=== PATIENT | male | born 1965 | race Caucasian/White ===

== ENCOUNTER 2016-06-14 07:44 | Day surgery (SDC) | payer BC ==
[~2016-06-14 07:44] MED LIST: Lactated Ringers 1,000 ML IV SCH
[2016-06-14] MEDS ORDERED: Propofol 200 MG/20 ML SDV ONE ×3 (09:54→10:17)
[2016-06-14] MEDS ORDERED: fentaNYL 100 MCG/2 ML SDV ONE (09:54)
[2016-06-14 11:18] VITALS: BP 142/97
--- NOTE | 2016-06-14 17:59 | OR ---
DATE OF SURGERY: 06/14/2016. REFERRING PROVIDER: Jaime Esqueda M.D. PREOPERATIVE DIAGNOSES: 1. Screening colonoscopy. 2. Positive family history of colon cancer in paternal grandfather, who was diagnosed in his late 40s/early 50s. Also positive family history of celiac disease in sister. POSTOPERATIVE DIAGNOSES: 1. Two colon polyps removed. a. 3 mm cecal polyp removed with cold forceps times several small bites. b. 8 mm partially pedunculated polyp at 16 cm from the anal verge. This was removed with hot snare and then base of the polyp was cauterized. PROCEDURE: Colonoscopy with polypectomy x2 (one using cold forceps and one using hot snare). SURGEON: Josafat Cheema M.D. ANESTHESIA: Monitored anesthesia care. BOWEL PREP: Good. DESCRIPTION OF PROCEDURE: Juan Daniel is a 50-year-old male who was brought to the endoscopy suite after discussing risks and benefits of the procedure. Informed consent was obtained for conscious sedation and colonoscopy with or without biopsy and/or polypectomy. We also discussed possibility of missed lesions. Pre-procedure exam was unremarkable. IV, oxygen, and monitors were placed. The patient was placed in the left lateral decubitus position. Sedation was administered and a digital rectal exam was performed which was unremarkable. Colonoscope was passed into the rectum and slowly advanced all the way to the cecum. Cecum was viewed and photographed. There was noted to be a 3-mm polyp at the entry to the cecum. This was photographed and removed with several bites using the cold forceps. The colonoscope was slowly withdrawn and the mucosa was closed observed in a direct circumferential manner. The ascending colon was unremarkable. The transverse colon was unremarkable. The descending colon was unremarkable. The sigmoid colon at the rectosigmoid junction revealed 8-mm partially pedunculated polyp at 16 cm from the anal verge. This was photographed and removed with hot snare. The tip of the snare was also used to cauterize the base of the polyp site. Retroflexion was performed and rectal mucosa was unremarkable. Scope was removed. The patient tolerated the procedure well. The patient was monitored until that baseline status. Discharge instructions were reviewed and the patient was discharged in good condition. COMPLICATIONS: None. TOTAL TIME: 34 minutes. ESTIMATED BLOOD LOSS: About 1 mL. RECOMMENDATIONS/FOLLOW-UP: We will await results of path report to determine ideal followup interval. We will have the patient avoid any aspirin for the next 5 days. I would like to kindly thank Dr. Jaime Esqueda for this referral. DMB: 06/14/2016 10:54:19 MODL: 06/14/2016 17:50:54 /[id number]
== END 2016-06-14 11:41 | disposition home or self-care (01) ==
LOC: VM.SDS 07:44
PROVIDERS: ATTEND Family Medicine
DX: Z12.11 Encounter for screening for malignant neoplasm of colon (principal); Z80.0 Family history of malignant neoplasm of digestive organs; Z79.899 Other long term (current) drug therapy
CPT/HCPCS: 45380; 45385; J2704; J3010; J7120

== ENCOUNTER 2020-08-02 16:48 | Emergency (ER) | payer OTHER ==
--- NOTE | 2020-08-02 17:01 | EDM.PDOC ---
ED HPI GENERAL MEDICAL PROBLEM - General Time Seen by Provider: 08/02/20 16:50 Source of Information: Reports: Patient, RN, RN Notes Reviewed History Limitations: Reports: No Limitations - History of Present Illness INITIAL COMMENTS - FREE TEXT/NARRATIVE: Patient is a 54-year-old male who presents to ER with complaint of left shoulder and scapular pain. Patient denies any chest pains, shortness of breath, nausea, vomiting, diarrhea, fever, chills. Patient states he does have lumbar radiculopathy and sciatica that has been a longstanding issue from bulging disks in his lower back. Patient states over the past few days he has been tearing shingles off and carrying steel on a rough. States he was up at 4 this morning was not having pain, and when he awoke at 5 was having severe pain in the left shoulder and scapular area. States he does feel shooting pain down the left arm, denies any numbness or tingling of the fingers, hand, arm. Patient states he has taken ibuprofen 3 times today which has not touched the pain. Pt states he did go to the chiropractor this morning. States he does have an appointment with Noemi Warren tomorrow morning. Onset: Today Left Shoulder Pain Score (Numeric/FACES): 8 - Related Data Allergies Allergy/AdvReac Type Severity Reaction Status Date / Time No Known Allergies Allergy Verified 08/02/20 17:11 Home Meds: Home Meds Pravastatin Sodium [Pravastatin (Pravachol)] 20 mg PO DAILY 02/18/16 [History] Past Medical History - Past Health History Medical/Surgical History: Denies Medical/Surgical History HEENT History: Reports: Impaired Vision Cardiovascular History: Reports: High Cholesterol, Hypertension Respiratory History: Reports: None Other Respiratory History: SNORING Gastrointestinal History: Reports: None Genitourinary History: Reports: None 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) Neurological History: Reports: None Other Neuro History: RESTLESS LEG SYNDROME Psychiatric History: Reports: None Other Endocrine/Metabolic History: IMPAIRED FASTING BLOOD GLUCOSE A1C 6.1 Hematologic History: Reports: None Immunologic History: Reports: None Oncologic (Cancer) History: Reports: None Dermatologic History: Reports: None - Past Surgical History GI Surgical History: Reports: None Male Surgical History: Reports: None Endocrine Surgical History: Reports: None Neurological Surgical History: Reports: None Musculoskeletal Surgical History: Reports: None Social & Family History - Family History Family Medical History: No Pertinent Family History - Caffeine Use Caffeine Use: Reports: Soda ED ROS GENERAL - Review of Systems Review Of Systems: Comprehensive ROS is negative, except as noted in HPI. ED EXAM, GENERAL - Physical Exam Exam: See Below Exam Limited By: No Limitations General Appearance: Alert, WD/WN, Mild Distress Eye Exam: Bilateral Eye: EOMI, Normal Inspection Ears: Normal External Exam, Hearing Grossly Normal Nose: Normal Inspection Throat/Mouth: Normal Inspection, Normal Voice, No Airway Compromise Head: Atraumatic, Normocephalic Neck: Normal Inspection, Supple, Limited Range of Motion, Tender Lateral, Tender Midline Respiratory/Chest: No Respiratory Distress, Lungs Clear, Normal Breath Sounds, No Accessory Muscle Use, Chest Non-Tender Cardiovascular: Normal Peripheral Pulses, Regular Rate, Rhythm, No Edema, No Gallop, No JVD, No Murmur, No Rub GI/Abdominal: Normal Bowel Sounds, Soft, Non-Tender (Male) Exam: Deferred Rectal (Males) Exam: Deferred Back Exam: Normal Inspection, Full Range of Motion Extremities: Limited Range of Motion (left arm) Neurological: Alert, Oriented, CN II-XII Intact, Normal Cognition, Normal Gait, Normal Reflexes, No Motor/Sensory Deficits Psychiatric: Normal Affect, Normal Mood Skin Exam: Warm, Dry, Intact, Normal Color, No Rash Lymphatic: No Adenopathy #1 Interpretation EKG Date: 08/02/20 Time: 17:01 Rhythm: NSR Rate (Beats/Min): 77 [place]: Normal P-Wave: Present QRS: Normal ST-T: Normal QT: Normal Comparison: NA - No Prior EKG Course - Vital Signs Last Recorded V/S: Last Vital Signs Temp 98.7 F 08/02/20 16:50 Pulse 72 08/02/20 16:50 Resp 16 08/02/20 16:50 BP 149/99 H 08/02/20 16:50 Pulse Ox 97 08/02/20 16:50 - Orders/Labs/Meds Orders: Active Orders 24 hr Category Date Time Status EKG Documentation Completion [RC] STAT Care 08/02/20 17:02 Active Acetaminophen/HYDROcodone [Take Home: Acetaminophen/ Med 08/02/20 18:48 Once HYDROcodone 325-10MG] 1 packet PO ONETIME ONE Cyclobenzaprine [Take Home: Cyclobenzaprine 10 MG, 4 Med 08/02/20 18:47 Once Tab Pack] 1 packet PO ONETIME ONE Ketorolac [Take Home: Ketorolac 10 MG, 4 Tab Pack] Med 08/02/20 18:47 Once 1 packet PO ONETIME ONE Labs: Laboratory Tests 08/02/20 08/02/20 Range/Units 17:19 17:19 WBC 8.6 (4.0-10.0) x10^3/uL RBC 4.99 (4.5-6.0) x10^6/uL Hgb 15.7 (14.0-18.0) g/dL Hct 44.8 (40.0-52.0) % MCV 89.8 (78.0-93.0) fL MCH 31.5 (26.0-32.0) pg MCHC 35.0 (32.0-36.0) g/dL RDW Coeff of Elsa 12.8 (10.0-15.0) % Plt Count 237 (130-400) x10^3/uL Neut % (Auto) 62.6 (50.0-80.0) % Lymph % (Auto) 23.3 L (25.0-50.0) % Russell % (Auto) 12.1 H (2.0-11.0) % Eos % (Auto) 1.7 (0.0-4.0) % Baso % (Auto) 0.3 (0.2-1.2) % Sodium 139 (136-145) mmol/L Potassium 4.1 (3.5-5.1) mmol/L Chloride 102 (98-107) mmol/L Carbon Dioxide 26 (21-32) mmol/L Anion Gap 15.1 H (5-15) mmol/L BUN 18 (7-18) mg/dL Creatinine 1.2 (0.70-1.30) mg/dL Est Cr Clr Drug Dosing TNP Estimated GFR (MDRD) > 60 Glucose 106 H (70-99) mg/dL Calcium 8.4 L (8.5-10.1) mg/dL Corrected Calcium 8.56 (8.5-10.1) mg/dL Total Bilirubin 0.5 (0.2-1.0) mg/dL AST 25 (15-37) U/L ALT 43 (16-63) U/L Alkaline Phosphatase 54 (46-116) U/L Troponin I High Sens 6 (<=76) ng/L Total Protein 7.1 (6.4-8.2) g/dL Albumin 3.8 (3.4-5.0) g/dL Globulin 3.3 Albumin/Globulin Ratio 1.15 Meds: Medications Discontinued Medications Generic Name Dose Route Start Last Admin Trade Name Shine PRN Reason Stop Dose Admin Dexamethasone 8 mg 08/02/20 18:12 08/02/20 18:24 Dexamethasone 4 Mg/Ml Sdv IM 08/02/20 18:13 8 mg ONETIME ONE Administration Ketorolac Tromethamine 30 mg 08/02/20 18:12 08/02/20 18:25 Ketorolac 30 Mg/Ml Sdv IM 08/02/20 18:13 30 mg ONETIME ONE Administration Orphenadrine Citrate 60 mg 08/02/20 18:12 08/02/20 18:24 Orphenadrine 60 Mg/2 Ml Inj IM 08/02/20 18:13 60 mg ONETIME ONE Administration - Radiology Interpretation Free Text/Narrative:: Chest x-ray: Negative exam Cervical spine x-ray: Moderate C5-C6 and mild C4-C5 disc degeneration. See radiologist report Departure - Departure Time of Disposition: 18:49 Disposition: Home, Self-Care 01 Reason for Transfer *Q: Other Condition: Fair Clinical Impression: Cervical radiculopathy Instructions: Shoulder Pain, [id number], Cervical Radiculopathy, [id number] Referrals: Noemi Warren MD [Primary Care Provider] - Forms: ED Department Discharge Additional Instructions: No heavy lifting RX: Ketorolac, Cyclobenzaprine, Dexamethasone Follow up with your primary care facility for possible MRI May use Tylenol in addition to above meds for pain relief, but do not take ibuprofen with the Ketorolac (this is also an NSAID) May alternate heat and ice to the area DO NOT DRIVE OR OPERATE HEAVY MACHINERY WHILE TAKING CYCLOBENZAPRINE Return to the ER with any worsening of symptoms. Sepsis Event Note (ED) - Focused Exam Vital Signs: Vital Signs Temp Pulse Resp BP Pulse Ox 08/02/20 16:50 98.7 F 72 16 149/99 H 97 - My Orders Last 24 Hours: My Active Orders 08/02/20 17:02 EKG Documentation Completion [RC] STAT 08/02/20 18:47 Cyclobenzaprine [Take Home: Cyclobenzaprine 10 MG, 4 Tab Pack] 1 packet PO ONETIME ONE Ketorolac [Take Home: Ketorolac 10 MG, 4 Tab Pack] 1 packet PO ONETIME ONE 08/02/20 18:48 Acetaminophen/HYDROcodone [Take Home: Acetaminophen/HYDROcodone 325-10MG] 1 packet PO ONETIME ONE - Assessment/Plan Last 24 Hours: My Active Orders 08/02/20 17:02 EKG Documentation Completion [RC] STAT 08/02/20 18:47 Cyclobenzaprine [Take Home: Cyclobenzaprine 10 MG, 4 Tab Pack] 1 packet PO ONETIME ONE Ketorolac [Take Home: Ketorolac 10 MG, 4 Tab Pack] 1 packet PO ONETIME ONE 08/02/20 18:48 Acetaminophen/HYDROcodone [Take Home: Acetaminophen/HYDROcodone 325-10MG] 1 packet PO ONETIME ONE
[2020-08-02 17:09] VITALS: BP 149/99; PULSE 72
[2020-08-02 17:51] LABS: CHLORIDE,CL 102 mmol/L (98-107); SODIUM,NA 139 mmol/L (136-145)
[2020-08-02 17:57] LABS: ANION GAP 15.1 mmol/L (5-15)
[2020-08-02] MEDS ORDERED: Dexamethasone 4 MG/ML SDV IM ONE (18:12)
[2020-08-02] MEDS ORDERED: Ketorolac 30 MG/ML SDV IM ONE (18:12)
[2020-08-02] MEDS ORDERED: Orphenadrine 60 MG/2 ML Inj IM ONE (18:12)
--- NOTE | 2020-08-02 18:30 | CR ---
[id number] RAD/RAD Chest PA And Lateral EXAM: FRONTAL AND LATERAL CHEST INDICATION: LEFT SHOULDER/BACK PAIN. COMPARISON: None. DISCUSSION: The heart and lungs are normal in appearance. Chronic healed bilateral rib fractures. IMPRESSION: 1. Negative exam. Jermaine Franklin MD 08/02/20 [id number] Thank you for allowing us to participate in the care of your patient.
--- NOTE | 2020-08-02 18:31 | CR ---
[id number] RAD/RAD Cervical Spine 2-3V EXAM: RAD Cervical Spine 2-3V INDICATION: LEFT ARM/BACK PAIN. COMPARISON: None. DISCUSSION: Moderate disc degeneration at C5-C6 with milder changes at C4-C5. The remaining disc heights are maintained. The vertebral bodies are normal in height and alignment without fracture or suspicious bone lesion identified. Normal prevertebral soft tissue thickness. IMPRESSION: 1. Moderate C5-C6 and mild C4-C5 disc degeneration. Jermaine Franklin MD 08/02/20 [id number] Thank you for allowing us to participate in the care of your patient.
[2020-08-02] MEDS ORDERED: Take Home: Cyclobenzaprine 10 MG Tab, 4 Tab Pack PO ONE (18:47)
[2020-08-02] MEDS ORDERED: Take Home: Ketorolac 10 MG Tab, 4 Tab Pack PO ONE (18:47)
[2020-08-02] MEDS ORDERED: Take Home: Acetaminophen/HYDROcodone 325-10 MG, 5 Tab Pack PO ONE (18:48)
== END 2020-08-02 19:01 | disposition home or self-care (01) ==
LOC: VM.ED 16:48
DX: M54.12 Radiculopathy, cervical region (principal); E78.00 Pure hypercholesterolemia, unspecified; I10 Essential (primary) hypertension; Z79.899 Other long term (current) drug therapy
CPT/HCPCS: 36415; 71046; 72040; 80053; 84484; 85025; 93005; 93010; 96372; 99284; 99284-25; A9270-GY; J1100; J1885; J2360

== ENCOUNTER 2020-12-16 01:10 | Emergency (ER) | payer OTHER ==
[2020-12-16] MEDS ORDERED: Dexamethasone 4 MG/ML SDV IM ONE (01:31)
[2020-12-16] MEDS ORDERED: Orphenadrine 60 MG/2 ML Inj IM ONE (01:31)
[2020-12-16] MEDS ORDERED: Ketorolac 30 MG/ML SDV IM ONE (01:31)
[2020-12-16 01:33] VITALS: BP 151/82; PULSE 73
--- NOTE | 2020-12-16 01:36 | EDM.PDOC ---
ED HPI GENERAL MEDICAL PROBLEM - General Chief Complaint: Back Pain or Injury Stated Complaint: back pain Time Seen by Provider: 12/16/20 01:10 Source of Information: Reports: Patient History Limitations: Reports: No Limitations - History of Present Illness INITIAL COMMENTS - FREE TEXT/NARRATIVE: Patient comes into the emergency room with complaint of lower back pain. Patient states that his back started hurting approximately 12 hours ago. Patient was moving an object from the cover to lower position. He states that he did feel a popping sensation. He states that the discomfort and pain is lower midsection of his back that shoots pain and discomfort around middle of his abdomen. He describes as a sharp shooting sensation. He denies any radiation down his legs or midsection of his back. He also denies any loss of bowel or bladder. Patient states that he has had similar incidences in the past with bulging disks for he often lifts heavy objects. He states that this is similar however it is more severe and significant than it has been in the past. He states he is having difficulty getting in a position of comfort. He denies any CMS or range of motion concerns of his lower extremities. He does stated is difficult to bend over due to the pain discomfort at approximately L1-L2 region. 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 Middle Back Pain Score (Numeric/FACES): 10 - Related Data Allergies Allergy/AdvReac Type Severity Reaction Status Date / Time No Known Allergies Allergy Verified 08/02/20 17:11 Home Meds: Home Meds Pravastatin Sodium [Pravastatin (Pravachol)] 20 mg PO DAILY 02/18/16 [History] Cyclobenzaprine [Flexeril] 10 mg PO TID PRN #15 tab 12/16/20 [Rx] predniSONE [Prednisone] 20 mg PO DAILY 5 Days #5 tablet 12/16/20 [Rx] Past Medical History - Past Health History Medical/Surgical History: Denies Medical/Surgical History HEENT History: Reports: Impaired Vision Cardiovascular History: Reports: High Cholesterol, Hypertension Respiratory History: Reports: None Other Respiratory History: SNORING Gastrointestinal History: Reports: None Genitourinary History: Reports: None 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) Neurological History: Reports: None Other Neuro History: RESTLESS LEG SYNDROME Psychiatric History: Reports: None Other Endocrine/Metabolic History: IMPAIRED FASTING BLOOD GLUCOSE A1C 6.1 Hematologic History: Reports: None Immunologic History: Reports: None Oncologic (Cancer) History: Reports: None Dermatologic History: Reports: None - Past Surgical History HEENT Surgical History: Reports: None Cardiovascular Surgical History: Reports: None GI Surgical History: Reports: None Male Surgical History: Reports: None Endocrine Surgical History: Reports: None Neurological Surgical History: Reports: None Musculoskeletal Surgical History: Reports: None Social & Family History - Family History Family Medical History: No Pertinent Family History - Caffeine Use Caffeine Use: Reports: Soda ED ROS GENERAL - Review of Systems Review Of Systems: Comprehensive ROS is negative, except as noted in HPI. Constitutional: Reports: No Symptoms HEENT: Reports: No Symptoms Respiratory: Reports: No Symptoms Cardiovascular: Reports: No Symptoms Endocrine: Reports: No Symptoms GI/Abdominal: Reports: No Symptoms : Reports: No Symptoms Musculoskeletal: Reports: Back Pain Skin: Reports: No Symptoms Neurological: Reports: No Symptoms Psychiatric: Reports: No Symptoms Hematologic/Lymphatic: Reports: No Symptoms Immunologic: Reports: No Symptoms ED EXAM, GENERAL - Physical Exam Exam: See Below Exam Limited By: No Limitations General Appearance: Alert, WD/WN, No Apparent Distress Head: Atraumatic, Normocephalic Neck: Normal Inspection, Supple, Non-Tender, Full Range of Motion Respiratory/Chest: No Respiratory Distress, Lungs Clear, Normal Breath Sounds, Chest Non-Tender Cardiovascular: Normal Peripheral Pulses, Regular Rate, Rhythm, No Edema GI/Abdominal: Normal Bowel Sounds, Soft, Non-Tender Back Exam: Normal Inspection, Full Range of Motion Extremities: Normal Inspection, Normal Range of Motion, Normal Capillary Refill, Limited Range of Motion (back due to spasm ) Neurological: Alert, Oriented, CN II-XII Intact, Normal Gait Skin Exam: Warm, Dry, Intact Course - Vital Signs Last Recorded V/S: Last Vital Signs Temp 36.6 C 12/16/20 01:11 Pulse 73 12/16/20 01:11 Resp 16 12/16/20 01:11 BP 151/82 H 12/16/20 01:11 Pulse Ox 99 12/16/20 01:11 - Orders/Labs/Meds Orders: Active Orders 24 hr Category Date Time Status predniSONE [Take Home: predniSONE 20 MG, 2 Tab Pack] Med 12/16/20 01:51 Once 1 packet PO ONETIME ONE Meds: Medications Discontinued Medications Generic Name Dose Route Start Last Admin Trade Name Shine PRN Reason Stop Dose Admin Cyclobenzaprine HCl 1 packet 12/16/20 01:46 Take Home: Cyclobenzaprine 10 Mg Tab, 4 Tab Pack PO 12/16/20 01:47 ONETIME ONE Dexamethasone 8 mg 12/16/20 01:31 Dexamethasone 4 Mg/Ml Sdv IM 12/16/20 01:32 ONETIME ONE Ketorolac Tromethamine 30 mg 12/16/20 01:31 Ketorolac 30 Mg/Ml Sdv IM 12/16/20 01:32 ONETIME ONE Orphenadrine Citrate 60 mg 12/16/20 01:31 Orphenadrine 60 Mg/2 Ml Inj IM 12/16/20 01:32 ONETIME ONE Departure - Departure Time of Disposition: 01:45 Disposition: Home, Self-Care 01 Condition: Good Clinical Impression: Back spasm - Discharge Information *PRESCRIPTION DRUG MONITORING PROGRAM REVIEWED*: Not Applicable *COPY OF PRESCRIPTION DRUG MONITORING REPORT IN PATIENT DYANA: Not Applicable Prescriptions: Cyclobenzaprine [Flexeril] 10 mg PO TID PRN #15 tab PRN Reason: Pain predniSONE [Prednisone] 20 mg PO DAILY 5 Days #5 tablet Instructions: Back Injury Prevention, [id number], Muscle Strain, [id number] Forms: ED Department Discharge Additional Instructions: 1. rest 2. Can take Flexeril to help with muscle spasm 3. Take prednisone daily for muscle inflammation 4. Continue all at home medications 5. Activity and diet as tolerated 6. Can take over the counter Tylenol for any pain or discomfort 7. use ice or heat for 20 minutes at a time 3-4 times a day 8. Follow up with PCP if symptoms continue, return, or progress 9. Call with any questions or concerns Sepsis Event Note (ED) - Focused Exam Vital Signs: Vital Signs Temp Pulse Resp BP Pulse Ox 12/16/20 01:11 36.6 C 73 16 151/82 H 99 - My Orders Last 24 Hours: My Active Orders 12/16/20 01:51 predniSONE [Take Home: predniSONE 20 MG, 2 Tab Pack] 1 packet PO ONETIME ONE - Assessment/Plan Last 24 Hours: My Active Orders 12/16/20 01:51 predniSONE [Take Home: predniSONE 20 MG, 2 Tab Pack] 1 packet PO ONETIME ONE Assessment:: 1. back pain 2. back muscle spasm 3. back sprain Plan: 1. Ice Applied to the affected area 2. Medication offered to the patient- Dexamethasone, Toradol, and Norflex 3. Script sent with the patient 4. Education regarding splinting, activity, [id number] medications, and follow-up care provided. 5. All questions and concerns addressed with the patient prior to discharge
[2020-12-16] MEDS ORDERED: Take Home: Cyclobenzaprine 10 MG Tab, 4 Tab Pack PO ONE (01:46)
[2020-12-16] MEDS ORDERED: Take Home: predniSONE 20 MG, 2 Tab Pack PO ONE (01:51)
== END 2020-12-16 02:20 | disposition home or self-care (01) ==
LOC: VM.ED 01:10
DX: M62.830 Muscle spasm of back (principal); E78.00 Pure hypercholesterolemia, unspecified; I10 Essential (primary) hypertension; Z79.899 Other long term (current) drug therapy
CPT/HCPCS: 96372; 99283; A9270-GY; J1100; J1885; J2360; J7512